=== PATIENT | female | born 1975 | race Caucasian/White ===

== ENCOUNTER 2018-09-11 14:20 | Emergency (ER) | payer MEDICAID ==
[~2018-09-11] VITALS: Ht 160 cm; Wt 64.9 kg
[~2018-09-11 14:20] MED LIST: HYDR-3965 PO; PENI500T2 PO
[2018-09-11 15:07] VITALS: BP 111/77
--- NOTE | 2018-09-11 15:55 | NUR ---
SECONDARY MARKET MANAGER FRYE PT IN FOR LAB DRAW. PER SECONDARY MARKET MANAGER, PT STATES THAT SHE WILL NOT HAVE HER BLOOD DRAWN WITHOUT BEING GIVEN A SEDITIVE FIRST. PT REFUSED DRAW AT THIS TIME
== END 2018-09-11 20:15 | disposition left against medical advice (07) ==
LOC: ER 14:21
DX: R10.9 Unspecified abdominal pain (principal); Z53.21 Procedure and treatment not carried out due to patient leaving prior to being seen by health care provider

== ENCOUNTER 2018-09-16 09:00 | Emergency (ER) | payer MEDICAID ==
[~2018-09-16] VITALS: Ht 160 cm; Wt 64.8 kg
[2018-09-16] MEDS ORDERED: LORazepam 1 MG tablet PO ONE (09:15)
[2018-09-16 09:57] LABS: CLARITY,URINE SLIGHTLY CLOUDY (Clear); COLOR,URINE YELLOW (Yellow); GLUCOSE, URINE NEGATIVE (Neg); KETONES,URINE NEGATIVE (Neg); LEUKOCYTE ESTERASE ,URINE NEGATIVE (Neg); NITRITES, URINE NEGATIVE (Neg); OCCULT BLOOD,URINE NEGATIVE (Neg); PH,URINE 7.5 (4.8-8.0); PROTEIN,URINE NEGATIVE (Neg); UROBILINOGEN,URINE 0.2 E.U/dL (0.2-1.0)
[2018-09-16 10:03] LABS: UA COLLECTION TYPE CLN CATCH MIDSTREAM
[2018-09-16 10:04] LABS: MUCUS STRANDS FEW /LPF (Neg); SQUAMOUS EPITHELIAL CELL,UR MANY /LPF (FEW); TRANSITIONAL EPI CELLS,URINE FEW /HPF
[2018-09-16 10:05] LABS: BACTERIA,URINE NONE SEEN /HPF (Neg); RBC,URINE 0-2 /HPF (0-2); URINE HCG NEGATIVE (NEG); WBC,URINE 0-4 /HPF (0-4)
[2018-09-16 10:52] LABS: ALANINE AMINOTRANSFERASE 70 U/L (12-78); ALBUMIN 2.8 G/DL (3.4-5.0); ALBUMIN/GLOBULIN RATIO 0.5 (1.1-1.5); ALKALINE PHOSPHATASE 308 IU/L (46-116); ANION GAP 5 (8-16); ASPARTATE AMINO TRANSFERASE 60 U/L (10-37); BILIRUBIN,TOTAL 0.3 MG/DL (0.1-1.0); BLOOD UREA NITROGEN 16 MG/DL (7-18); BUN/CREATININE RATIO 22.2 (6.6-38.0); CALCIUM 8.6 MG/DL (8.5-10.1); CHLORIDE 102 MMOL/L (99-107); CREATININE 0.72 MG/DL (0.40-0.90); LIPASE 163 U/L (73-393); POTASSIUM 4.6 MMOL/L (3.5-5.1); SODIUM 136 MMOL/L (135-145); TOTAL PROTEIN 8.2 G/DL (6.4-8.2); eGFR 89 ML/MIN
[2018-09-16 10:53] LABS: GLUCOSE 84 MG/DL (70-104)
[2018-09-16 11:12] VITALS: BP 111/70
[2018-09-16 11:17] LABS: BASOPHILS # (AUTO) 0.1 X10'3 (0-0.2); BASOPHILS % (AUTO) 0.8 % (0-1); EOSINOPHILS # (AUTO) 0.1 X10'3 (0-0.9); EOSINOPHILS % (AUTO) 1.1 % (0-6); HEMATOCRIT 35.4 % (35.0-45.0); HEMOGLOBIN 11.4 g/dl (12.0-16.0); LYMPHOCYTES # (AUTO) 3.4 X10'3 (1.1-4.8); LYMPHOCYTES % (AUTO) 48.5 % (21-51); MEAN CORPUSCULAR HEMOGLOBIN 26.3 PG (27.0-31.0); MEAN CORPUSCULAR HGB CONC 32.1 g/dL (33.0-36.5); MEAN PLATELET VOLUME 6.2 FL (7.4-10.4); MONOCYTES # (AUTO) 0.9 X10'3 (0-0.9); MONOCYTES % (AUTO) 13.3 % (2-12); NEUTROPHILS # (AUTO) 2.5 X10'3 (1.8-7.7); NEUTROPHILS % (AUTO) 36.3 % (42-75); PLATELET COUNT 629 X10'3 (140-440); RED BLOOD COUNT 4.31 X10'6 (4.20-5.60); RED CELL DISTRIBUTION WIDTH 15.8 % (11.5-14.5)
== END 2018-09-16 11:55 | disposition home or self-care (01) ==
LOC: ER 09:00
DX: R10.9 Unspecified abdominal pain (principal); Z79.899 Other long term (current) drug therapy; Z56.0 Unemployment, unspecified
CPT/HCPCS: 36415; 80053; 81001; 81025; 83690; 85025; 99283

== ENCOUNTER 2024-09-27 16:44 | Emergency (ER) | payer MEDICAID ==
[~2024-09-27] VITALS: Ht 160 cm; Wt 53.6 kg
[2024-09-27] MEDS ORDERED: AZIT250T83 PO (18:17)
[2024-09-27] MEDS ORDERED: PROM118S5 PO (18:17)
[2024-09-27] MEDS ORDERED: IBUP-862 PO (18:17)
[2024-09-27] MEDS: ibuprofen tablet 400 MG TABLET PO ONE (18:23)
[2024-09-27] MEDS: azithromycin 250mg tablet PO ONE (18:23)
[2024-09-27] MEDS: CefTRIAXone 1000mg IM Kit (w/lidocaine diluent) IM ONE (18:26)
[2024-09-27 18:58] VITALS: BP 106/66; PULSE 107; RESP 16; TEMP 98.1; O2SAT 99
== END 2024-09-27 18:50 | disposition home or self-care (01) ==
LOC: ER 16:44
DX: J18.9 Pneumonia, unspecified organism (principal); Z20.822 Contact with and (suspected) exposure to COVID-19
CPT/HCPCS: 36415; 71045; 87502; 87503; 87811; 96372; 99284; J0696